=== PATIENT | female | born 1950 | race Caucasian/White ===

== ENCOUNTER 2024-04-05 19:39 | Emergency (ER) | payer OTHER ==
[~2024-04-05] VITALS: Ht 162.6 cm; Wt 58.0 kg
[2024-04-05 20:00] VITALS: O2SAT 97
[2024-04-05] MEDS: ACETAMINOPHEN 500MG TABLET PO ONE (20:25)
[2024-04-05] MEDS ORDERED: NAPR-1176 MT (21:36)
[2024-04-05] MEDS: KETOROLAC 15MG/ML VIAL IM ONE (21:52)
[2024-04-05 22:05] VITALS: BP 135/77; PULSE 78; RESP 18; TEMP 36.9; O2SAT 95
== END 2024-04-05 22:05 | disposition home or self-care (01) ==
LOC: ER 19:39
DX: S52.501A Unspecified fracture of the lower end of right radius, initial encounter for closed fracture (principal); K74.3 Primary biliary cirrhosis; Z79.1 Long term (current) use of non-steroidal anti-inflammatories (NSAID); Z90.710 Acquired absence of both cervix and uterus; Z98.890 Other specified postprocedural states; W01.0XXA Fall on same level from slipping, tripping and stumbling without subsequent striking against object, initial encounter; Y93.89 Activity, other specified; Y92.89 Other specified places as the place of occurrence of the external cause; Y99.8 Other external cause status
CPT/HCPCS: 99283; 73110; 29125; 96372; J1885; A4565